=== PATIENT | female | born 1975 | race Caucasian/White ===

== ENCOUNTER 2017-11-01 13:43 | Outpatient (CLI) | payer OTHER ==
--- NOTE | 2017-11-01 17:18 | ULT ---
FOCUS ULTRASOUND OF THE MEDIAL LEFT FOOT: Date: 11-01-17 History: Focal area of pain in the medial left foot. Technique: Focused ultrasound of the medial left foot and the hindfoot region is obtained. FINDINGS: Provided imaging demonstrates no mass lesion. Imaging was performed in a similar location on the [facility] t foot for comparison purposes. There is asymmetry noted. IMPRESSION: No discrete mass is identified within the left foot in the area of pain. Sonographic assessment is li mited and thus, if symptoms, persist, a foot MRI on the left is advised. POS: [facility]
== END 2017-11-01 13:44 | disposition home or self-care (01) ==
LOC: ULT 13:43
PROVIDERS: ATTEND Family Medicine
DX: R22.42 Localized swelling, mass and lump, left lower limb (principal)
CPT/HCPCS: 76999

== ENCOUNTER 2018-01-14 08:55 | Outpatient (CLI) | payer OTHER | END 2018-01-14 08:56 | disposition home or self-care (01) | LOC: BICMRI 08:55 | PROVIDERS: ATTEND Family Medicine | DX: M79.672 Pain in left foot (principal) ==